=== PATIENT | male | born 1975 | race Caucasian/White ===

== ENCOUNTER → 2024-05-28 09:20 | Outpatient (REF) | payer OTHER, SELFPAY | LOC: RCS 09:20 | PROVIDERS: ATTENDING PHYSICIAN Internal Medicine Cardiovascular Disease; FAMILY PHYSICIAN Nurse Practitioner Family | DX: R00.1 Bradycardia, unspecified (principal); I44.0 Atrioventricular block, first degree | CPT/HCPCS: 93225; 93226 ==